=== PATIENT | male | born 1940 | race Hispanic/Latino ===

== ENCOUNTER → 2017-05-06 | Outpatient (CLI) | payer OTHER | LOC: OIH 16:13 | PROVIDERS: ATTEND Family Medicine | DX: M47.894 Other spondylosis, thoracic region (principal) | CPT/HCPCS: 71046 ==

== ENCOUNTER → 2019-04-03 | Outpatient (CLI) | payer OTHER | END | disposition home or self-care (01) | LOC: RAH 09:53 | PROVIDERS: ATTEND Family Medicine | DX: I08.3 Combined rheumatic disorders of mitral, aortic and tricuspid valves (principal); I10 Essential (primary) hypertension | CPT/HCPCS: 93306; 93356 ==